=== PATIENT | female | born 2005 | race Caucasian/White ===

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

== ENCOUNTER 2024-08-20 15:28 | Outpatient (CLI) | payer BC, SELFPAY ==
--- NOTE | ~2024-08-20 | XR_ITS ---
XR wrist LT min 3V Ordering provider: Peter Crooks, [place] [facility] History: . Left wrist pain . Comparison: None. FINDINGS: BONES: No acute fracture or dislocation. No definite scaphoid fracture. Sclerotic areas seen in the scaphoid bone. Follow-up advised. JOINT SPACES: Well maintained. SOFT TISSUES: Normal. IMPRESSION: No acute osseous abnormality left wrist. Sclerotic area in the scaphoid bone. Follow-up advised. Reviewed, dictated and finalized at location A.
== END 2024-08-20 15:29 | disposition home or self-care (01) ==
LOC: MICIMG 15:38
PROVIDERS: PCP Nurse Practitioner Family; Visit Provider Chiropractor
DX: M25.532 Pain in left wrist (principal)
CPT/HCPCS: 73110